=== PATIENT | female | born 2000 | race Hispanic/Latino ===

== ENCOUNTER 2020-03-29 16:40 | Emergency (ER) | payer SELFPAY ==
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
== END 2020-03-29 18:59 | disposition home or self-care (01) ==
LOC: ERS 16:40
DX: M25.432 Effusion, left wrist (principal); F17.210 Nicotine dependence, cigarettes, uncomplicated; F17.290 Nicotine dependence, other tobacco product, uncomplicated; V53.5XXA Driver of pick-up truck or van injured in collision with car, pick-up truck or van in traffic accident, initial encounter
CPT/HCPCS: 29125

== ENCOUNTER 2020-11-11 16:53 | Emergency (ER) | payer SELFPAY ==
[2020-11-11] MEDS ORDERED: Dexamethasone 10 MG/ML VIAL ONE (17:34)
== END 2020-11-11 17:42 | disposition home or self-care (01) ==
LOC: ERS 16:53
DX: J06.9 Acute upper respiratory infection, unspecified (principal); F17.290 Nicotine dependence, other tobacco product, uncomplicated
CPT/HCPCS: 99283; J1100